=== PATIENT | male | born 1935 | race Caucasian/White ===

== ENCOUNTER 2018-02-15 19:13 | Emergency (ER) | payer MEDICARE, OTHER ==
[2018-02-15] MEDS ORDERED: EPINEPHrine INJ 0.1 MG/ML 10 ML SYG IV ONE (19:27)
[2018-02-15 19:35] VITALS: TEMP 97.6
--- NOTE | 2018-02-15 20:15 | RAD ---
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 FINDINGS: Endotracheal tube tip approximately 4.5 cm above the krissy. Mildly prominent cardiac silhouette. Atherosclerotic calcifications and tortuosity in the thoracic aorta. There is a right pleural effusion with mild associated atelectasis or infiltrate. Scarring in the mid right lung. No pneumothorax. IMPRESSION: Endotracheal tube tip approximately 4.5 cm above the krissy. Right pleural effusion with associated atelectasis/infiltrate. Electronically signed by: Vikram Thomas MD 02/15/2018 8:14 PM CDT
[2018-02-15] MEDS ORDERED: SODIUM BICARBONATE VIAL 50 MEQ/50 ML VIAL IV ONE (20:29)
[2018-02-15] MEDS ORDERED: CALCIUM GLUCONATE INJ 1 GM/10 ML VIAL IV ONE (20:29)
[2018-02-15] MEDS ORDERED: DEXTROSE 50% 25 GM/50 ML SYG IV ONE (20:30)
[2018-02-15] MEDS ORDERED: INSULIN, REG.(HUMAN) 100 U/ML VIAL IV ONE (20:30)
[2018-02-15] MEDS ORDERED: DEX 5% W/NACL 0.9% 1000ML 1,000 ML IVS ONE (20:33)
[2018-02-15] MEDS ORDERED: CALCIUM CHLORIDE INJ 100 MG/ML SYG IV ONE ×2 (20:51→20:53)
--- NOTE | 2018-02-15 22:50 | ED.PDOC ---
History of Present Illness - General Chief Complaint: Respiratory Problem Stated Complaint: unresponsive Time Seen by Provider: 02/15/18 20:53 Source: patient Exam Limitations: clinical condition, other - intubated - History of Present Illness Initial Comments: Triston Alcazar 82 y/o male with copd brought by ems after he was found to be cyanotic and bradycardic at [facility].He was then intubated but according to ems patient is DNR and wants 2 minutes of chest compression and also he is on hospice care.Had previously fell this morning but no injuries noted. Timing/Duration: 1-3 hours Severity: severe Improving Factors: nothing Worsening Factors: nothing Allergies/Adverse Reactions: Allergies Penicillins Allergy (Verified 02/15/18 19:35) Review of Systems - Review of Systems Unable to Obtain Due To: condition, intubated Past Medical History (General) - Patient Medical History Hx of COPD: Yes - Vaccination History Hx Influenza Vaccination: - unknown Hx Pneumococcal Vaccination: - unknown - Activities of Daily Living Patient Lives Alone: No Fpc/Assisted Living (if applicable):: [facility] Family Medical History - Family History Mother Family History: Unknown Physical Exam - Physical Exam General Appearance: Other - intubated Eye Exam: bilateral other - PERRL Ears, Nose, Throat: normal ENT inspection, normal pharynx Neck: supple, normal inspection Respiratory: normal breath sounds, other - ventilatory support Cardiovascular/Chest: regular rate, rhythm, no murmur Peripheral Pulses: radial,right: 1+, radial,left: 1+ Gastrointestinal/Abdominal: soft, no organomegaly, no pulsatile mass Back Exam: normal inspection Extremity: no pedal edema, no calf tenderness Neurologic: other - intubated Skin Exam: other - sq thinned out Progress - Progress Progress: 02/15/18 22:57 Vital Signs - 8 hr 02/15/18 02/15/18 02/15/18 19:18 19:39 20:14 Temperature 97.6 F Pulse Rate [ 63 59 L 61 pulse ox] Respiratory 18 14 12 Rate Blood Pressure 53/29 152/59 99/50 [Left Arm] O2 Sat by Pulse 100 100 100 Oximetry 02/15/18 02/15/18 02/15/18 20:20 20:36 21:00 Temperature Pulse Rate [ 56 L 56 L 62 pulse ox] Respiratory Rate Blood Pressure 77/45 67/40 75/39 [Left Arm] O2 Sat by Pulse Oximetry 02/15/18 02/15/18 02/15/18 21:10 21:36 22:04 Temperature Pulse Rate [ 70 57 L 99 H pulse ox] Respiratory 16 Rate Blood Pressure 94/43 100/46 115/64 [Left Arm] O2 Sat by Pulse 99 Oximetry 02/15/18 23:46 Family decided DNR,no chest compression or any further resuscitative maneuvers and wants the mechanical ventilator discontinued.In hospital DNR signed.Patient will gradually be weaned off the ventilatory support and for care and comfort only. 02/16/18 01:35 Patient after being gradually weaned off respiratory support per family members request continue to be unresponsive,no visible chest rise,no pulse ,no heart sound on auscultation - Results/Orders Results/Orders: 02/15/18 19:24 Telemetry ONCE Oxygen Stat 02/15/18 19:27 EKG Assessment ONCE Mechanical Ventilation DAILY Oxygen Delivery Assessment: QSHIFT 02/15/18 19:30 EKG STAT 02/15/18 20:33 Dex 5% W/NaCl 0.9% 1000ML [D5 NS 1000ml] 1,000 ml IVS ONCE Laboratory Results - last 24 hr 02/15/18 02/15/18 19:29 19:30 WBC 14.9 H RBC 3.89 L Hgb 8.3 L Hct 30.0 L MCV 77.0 L MCH 21.3 L MCHC 27.7 L RDW 20.4 H Plt Count 156 MPV 6.9 L Absolute Neuts (auto) 13.20 H Absolute Lymphs (auto) 0.50 L Absolute Monos (auto) 1.10 H Absolute Eos (auto) 0.00 Absolute Basos (auto) 0.00 Neutrophils % 88.6 H Neutrophils % (Manual) 73.0 Lymphocytes % 3.6 L Lymphocytes % (Manual) 5.0 Monocytes % 7.5 Monocytes % (Manual) 6.0 Eosinophils % 0.1 L Basophils % 0.2 Band Neutrophils 12.0 H* Metamyelocytes 4.0 H Hypochromia 2+ Platelet Estimate Normal Poikilocytosis 3+ Anisocytosis 4+ Schistocytes 2+ PT 16.4 H INR 1.420 PTT (SP) 31.6 Sodium 137 Potassium 6.9 H* Chloride 99 L Carbon Dioxide 23 Anion Gap 21.9 H BUN 35 H Creatinine 1.30 BUN/Creatinine Ratio 26.9 H Random Glucose 87 Serum Osmolality 281.2 Calcium 8.6 Magnesium 2.4 Creatine Kinase 98 CK-MB (CK-2) 2.8 CK-MB (CK-2) % Not Reportable Troponin I 0.04 - EKG/XRAY/CT EKG: Jose, Sinus, RBBB Comments: HR-59;LAD Departure - Departure Clinical Impression: Respiratory failure requiring intubation, Acute hyperkalemia COPD (chronic obstructive pulmonary disease) Qualifiers: COPD type: unspecified COPD Qualified Code(s): J44.9 - Chronic obstructive pulmonary disease, unspecified Leukocytosis, unspecified Qualifiers: Leukocytosis type: bandemia Qualified Code(s): D72.825 - Bandemia Renal failure Qualifiers: Renal failure chronicity: unspecified chronicity Qualified Code(s): N19 - Unspecified kidney failure Time of Disposition: 01:38 Disposition: Referrals: DELLA PERALAT [Primary Care Provider] - 1-2 Weeks
[2018-02-15] MEDS ORDERED: MORPHINE SULFATE INJ 10 MG/ML VIAL IV ONE (23:50)
[2018-02-16] MEDS ORDERED: MORPHINE SULFATE INJ 10 MG/ML VIAL IV ONE (00:48)
[2018-02-16 01:53] VITALS: BP 72/32; O2SAT 56
== END 2018-02-16 01:25 | disposition expired ==
LOC: ER 19:13
DX: J96.90 Respiratory failure, unspecified, unspecified whether with hypoxia or hypercapnia (principal); E87.5 Hyperkalemia; J44.9 Chronic obstructive pulmonary disease, unspecified; N19 Unspecified kidney failure; D72.825 Bandemia; I45.10 Unspecified right bundle-branch block; Z66 Do not resuscitate